=== PATIENT | female | born 1990 | race African-American/Black ===

== ENCOUNTER 2022-06-17 09:11 | Emergency (ER) | payer OTHER ==
[2022-06-17 09:22] VITALS: BP 126/86; PULSE 67; RESP 20; TEMP 98.2; BMI 34.1
[2022-06-17] MEDS ORDERED: MAG HYDROX/AL HYDROX/SIMETH 30 ML UNIT-DOSE CUP PO ONE (10:53)
[2022-06-17 11:18] LABS: BASO % 1.4 % (0-2.0); EOS % 0.8 % (0-4.5); HEMATOCRIT 41.8 % (32.4-45.2); HEMOGLOBIN 13.9 GM/dL (10.7-15.3); LYMPH % 43.3 % (8-40); MCH 25.9 pg (25.7-33.7); MCHC 33.2 g/dl (32.0-36.0); MONO % 5.3 % (3.8-10.2); NEUT % 49.2 % (42.8-82.8); PLATELET COUNT 295 10^3/uL (134-434); RBC 5.36 M/mm3 (3.60-5.2); RDW 13.9 % (11.6-15.6); WHITE BLOOD COUNT 5.6 K/mm3 (4.0-10.0)
[2022-06-17] MEDS ORDERED: MAG HYDROX/AL HYDROX/SIMETH 30 ML UNIT-DOSE CUP ONE (11:25)
[2022-06-17 11:34] LABS: BLOOD UREA NITROGEN 9.6 mg/dL (7-18); CALCIUM 10.3 mg/dL (8.5-10.1)
[2022-06-17 11:38] LABS: CREATININE 0.7 mg/dL (0.55-1.3)
[2022-06-17 11:40] LABS: BILIRUBIN,TOTAL 0.4 mg/dL (0.2-1); TOT PROT 7.2 g/dl (6.4-8.2)
== END 2022-06-17 12:18 | disposition home or self-care (01) ==
LOC: JERFT 09:11
DX: T54.2X1A Toxic effect of corrosive acids and acid-like substances, accidental (unintentional), initial encounter (principal)
CPT/HCPCS: 36415; 80053; 85025; 99283-25